=== PATIENT | female | born 1975 | race Caucasian/White ===

== ENCOUNTER 2017-05-13 23:40 | Emergency (ER) | payer MEDICAID ==
[2017-05-14 01:26] VITALS: BP 128/85
== END 2017-05-14 01:26 | disposition home or self-care (01) ==
LOC: ED 23:40
DX: T23.272A Burn of second degree of left wrist, initial encounter (principal); T31.0 Burns involving less than 10% of body surface; Z79.1 Long term (current) use of non-steroidal anti-inflammatories (NSAID); Z79.899 Other long term (current) drug therapy; W40.8XXA Explosion of other specified explosive materials, initial encounter; Y93.89 Activity, other specified; Y92.89 Other specified places as the place of occurrence of the external cause; Y99.8 Other external cause status

== ENCOUNTER 2017-08-18 10:11 | Inpatient (IN) | payer MEDICAID ==
[~2017-08-18] VITALS: Ht 165.1 cm; Wt 72.8 kg
[2017-08-18 11:43] LABS: CARBON DIOXIDE 28.1 mmol/L (21-32); CHLORIDE SERUM 104 mmol/L (98-107); CREATININE SERUM 0.9 mg/dL (0.6-1.0); GFR1 > 60 mL/min; GLUCOSE SERUM 112 mg/dL (74-106); POTASSIUM SERUM 3.5 mmol/L (3.5-5.1); SODIUM SERUM 139 mmol/L (136-145)
[2017-08-18 11:53] LABS: ALBUMIN 3.2 g/dL (3.4-5.0); ALKALINE PHOSPHATASE 180 U/L (46-116); ALT/SGPT 2343 U/L (14-59); AST/SGOT 1445 U/L (15-37); BILIRUBIN TOTAL 2.3 mg/dL (0.20-1.00); LIPASE 118 IU/L (73-393)
[2017-08-18 12:59] LABS: CHOLESTEROL/HDL RATIO 2.6; MAGNESIUM 2.1 mg/dL (1.8-2.4); PHOSPHOROUS 3.1 mg/dL (2.5-4.9)
[2017-08-18 13:05] LABS: T3 TOTAL 1.42 ng/mL
[2017-08-18 13:06] LABS: FREE T4 1.18 ng/dL (0.76-1.46); FREE THYROXINE INDEX 3.3 ug/dL (1.4-4.5); T4(THYROXINE) 13.1 ug/dL (4.7-13.3)
[2017-08-18 14:00] VITALS: BP 122/86
[2017-08-18 15:17] LABS: BILIRUBIN DIRECT 1.74 mg/dL (0.0-0.2); BILIRUBIN TOTAL 2.2 mg/dL (0.20-1.00); TOTAL PROTEIN, SERUM 6.7 g/dL (6.4-8.2)
[2017-08-18 15:18] LABS: ALBUMIN 3.2 g/dL (3.4-5.0)
[2017-08-18 16:27] LABS: microscopic required? YES; urine erythrocyte TRACE (NEGATIVE)
[2017-08-18 16:36] LABS: AMPHETAMINE QUAL UR NONE DETECTED (NEG <=1000)
[2017-08-18 18:13] VITALS: BP 122/86
[2017-08-18 19:05] LABS: BASOPHIL % 0.7 % (0-2); PLATELET COUNT 217 x10^3mcL (130-400)
[2017-08-18 19:10] LABS: RED CELL DISTRIBUTION WIDTH 14.6 % (11.5-14.5)
[2017-08-18 23:05] VITALS: BP 106/54
[2017-08-19 06:13] VITALS: BP 99/54
[2017-08-19 06:19] LABS: BASOPHIL % 1.1 % (0-2); PLATELET COUNT 203 x10^3mcL (130-400)
[2017-08-19 06:26] LABS: RED CELL DISTRIBUTION WIDTH 14.7 % (11.5-14.5)
[2017-08-19 06:28] LABS: ALKALINE PHOSPHATASE 160 U/L (46-116); BILIRUBIN TOTAL 3.07 mg/dL (0.20-1.00); CALCIUM 8.3 mg/dL (8.5-10.1); CHLORIDE SERUM 107 mmol/L (98-107); CREATININE SERUM 0.9 mg/dL (0.6-1.0); GFR1 > 60 mL/min; GLUCOSE SERUM 63 mg/dL (74-106); POTASSIUM SERUM 3.9 mmol/L (3.5-5.1); SODIUM SERUM 140 mmol/L (136-145)
[2017-08-19 06:42] LABS: ALT/SGPT 2416 U/L (14-59); AST/SGOT 1820 U/L (15-37); TOTAL PROTEIN, SERUM 6.1 g/dL (6.4-8.2)
[2017-08-19 10:00] VITALS: BP 98/57
[2017-08-19 17:26] VITALS: BP 114/53
[2017-08-19 21:02] VITALS: BP 112/67
[2017-08-20 06:15] VITALS: BP 104/58
[2017-08-20 06:20] LABS: ALKALINE PHOSPHATASE 161 U/L (46-116); BILIRUBIN TOTAL 2.1 mg/dL (0.20-1.00); CHLORIDE SERUM 108 mmol/L (98-107); CREATININE SERUM 0.8 mg/dL (0.6-1.0); GFR1 > 60 mL/min; GLUCOSE SERUM 114 mg/dL (74-106); POTASSIUM SERUM 4.1 mmol/L (3.5-5.1); SODIUM SERUM 140 mmol/L (136-145)
[2017-08-20 06:24] LABS: ALBUMIN 2.6 g/dL (3.4-5.0); ALT/SGPT 1948 U/L (14-59); AST/SGOT 1140 U/L (15-37); TOTAL PROTEIN, SERUM 5.9 g/dL (6.4-8.2)
[2017-08-20 06:34] LABS: BASOPHIL % 1.4 % (0-2); PLATELET COUNT 191 x10^3mcL (130-400); RED CELL DISTRIBUTION WIDTH 15.1 % (11.5-14.5)
[2017-08-20 09:40] VITALS: BP 120/77
[2017-08-20 14:06] VITALS: BP 109/69
[2017-08-20 16:53] VITALS: BP 145/92
[2017-08-20 21:32] VITALS: BP 113/69
[2017-08-21 05:42] VITALS: BP 99/55
[2017-08-21 06:36] LABS: PLATELET COUNT 188 x10^3mcL (130-400)
[2017-08-21 06:38] LABS: RED CELL DISTRIBUTION WIDTH 14.7 % (11.5-14.5)
[2017-08-21 06:58] LABS: CALCIUM 8.3 mg/dL (8.5-10.1); CARBON DIOXIDE 28.6 mmol/L (21-32); CHLORIDE SERUM 106 mmol/L (98-107); CREATININE SERUM 0.8 mg/dL (0.6-1.0); GFR1 > 60 mL/min; GLUCOSE SERUM 121 mg/dL (74-106); MAGNESIUM 1.6 mg/dL (1.8-2.4); PHOSPHOROUS 3.2 mg/dL (2.5-4.9); POTASSIUM SERUM 3.8 mmol/L (3.5-5.1); SODIUM SERUM 141 mmol/L (136-145)
[2017-08-21 08:01] LABS: BILIRUBIN DIRECT 2.61 mg/dL (0.0-0.2); BILIRUBIN TOTAL 3.31 mg/dL (0.20-1.00)
[2017-08-21 08:02] LABS: ALBUMIN 2.8 g/dL (3.4-5.0)
[2017-08-21 09:45] VITALS: BP 138/96
[2017-08-21 13:54] VITALS: BP 110/75
[2017-08-21 16:50] VITALS: BP 119/71
[2017-08-21 21:21] VITALS: BP 114/71
[2017-08-22] VITALS (13 sets, daily range): BP systolic 113–147; BP diastolic 64–84
[2017-08-22 06:43] LABS: PLATELET COUNT 216 x10^3mcL (130-400)
[2017-08-22 07:01] LABS: ALKALINE PHOSPHATASE 189 U/L (46-116); BILIRUBIN TOTAL 2.98 mg/dL (0.20-1.00); CALCIUM 8.9 mg/dL (8.5-10.1); CARBON DIOXIDE 27.6 mmol/L (21-32); CHLORIDE SERUM 104 mmol/L (98-107); CREATININE SERUM 0.8 mg/dL (0.6-1.0); GFR1 > 60 mL/min; GLUCOSE SERUM 157 mg/dL (74-106); MAGNESIUM 1.8 mg/dL (1.8-2.4); PHOSPHOROUS 2.3 mg/dL (2.5-4.9); POTASSIUM SERUM 3.9 mmol/L (3.5-5.1); SODIUM SERUM 139 mmol/L (136-145); TOTAL PROTEIN, SERUM 7.2 g/dL (6.4-8.2)
[2017-08-22 07:02] LABS: ALBUMIN 3.2 g/dL (3.4-5.0); ALT/SGPT 2221 U/L (14-59); AST/SGOT 1092 U/L (15-37)
[2017-08-22 07:07] LABS: BASOPHIL % 0 % (0-2); RED CELL DISTRIBUTION WIDTH 15.1 % (11.5-14.5)
[2017-08-23 05:55] VITALS: BP 129/65
[2017-08-23 06:35] LABS: ALKALINE PHOSPHATASE 168 U/L (46-116); AST/SGOT 376 U/L (15-37); BILIRUBIN TOTAL 1.5 mg/dL (0.20-1.00); CALCIUM 8.2 mg/dL (8.5-10.1); CARBON DIOXIDE 27.8 mmol/L (21-32); CHLORIDE SERUM 107 mmol/L (98-107); CREATININE SERUM 0.7 mg/dL (0.6-1.0); GFR1 > 60 mL/min; GLUCOSE SERUM 218 mg/dL (74-106); SODIUM SERUM 139 mmol/L (136-145)
[2017-08-23 06:36] LABS: ALBUMIN 2.6 g/dL (3.4-5.0); ALT/SGPT 1498 U/L (14-59)
[2017-08-23 06:59] LABS: PLATELET COUNT 210 x10^3mcL (130-400)
[2017-08-23 07:00] LABS: RED CELL DISTRIBUTION WIDTH 14.6 % (11.5-14.5)
[2017-08-23 10:30] VITALS: BP 134/71
[2017-08-23] MEDS ORDERED: TOR10 PO (11:01)
[2017-08-23] MEDS ORDERED: IBUPROFEN400 MG PO (11:26)
[2017-08-23] MEDS ORDERED: ORAPRED ODT30 MG PO ×2 (13:05)
== END 2017-08-23 16:21 | disposition home or self-care (01) ==
LOC: ED 10:11 → DU 12:08 → MU 08-22 17:04
PROVIDERS: Emergency Medicine; Internal Medicine; Internal Medicine Gastroenterology; Student in an Organized Health Care Education/Training Program; ADMIT Family Medicine Sports Medicine
PROC: 0FB13ZX Excision of Right Lobe Liver, Percutaneous Approach, Diagnostic (ICD-10-PCS; principal; 2017-08-22)
DX: K75.4 Autoimmune hepatitis (principal); E43 Unspecified severe protein-calorie malnutrition; E87.8 Other disorders of electrolyte and fluid balance, not elsewhere classified; E83.51 Hypocalcemia; D75.89 Other specified diseases of blood and blood-forming organs; R31.9 Hematuria, unspecified; K76.0 Fatty (change of) liver, not elsewhere classified; Z68.26 Body mass index [BMI] 26.0-26.9, adult
CPT/HCPCS: 78226; 84439; 90658; A9537; J0295; J1885; J2001; J2270; J2405; J2930; J3475; J7030; Q0092; Q0162

== ENCOUNTER 2017-09-03 17:46 | Emergency (ER) | payer MEDICAID ==
[~2017-09-03] VITALS: Ht 167.6 cm; Wt 73.0 kg
[~2017-09-03 17:46] MED LIST: IBUPROFEN400 MG PO; ORAPRED ODT30 MG PO; TOR10 PO
[2017-09-03 21:10] VITALS: BP 119/74
== END 2017-09-03 21:10 | disposition home or self-care (01) ==
LOC: ED 17:46
DX: B01.9 Varicella without complication (principal)
CPT/HCPCS: J1885; Q0162

== ENCOUNTER 2018-05-01 12:25 | Emergency (ER) | payer MEDICAID ==
[~2018-05-01] VITALS: Ht 179.1 cm; Wt 74.5 kg
[2018-05-01 12:31] VITALS: Ht 179.1 cm; Wt 74.5 kg
[2018-05-01 14:36] LABS: BASOPHIL % 1.2 % (0-2); PLATELET COUNT 252 x10^3mcL (130-400); RED CELL DISTRIBUTION WIDTH 13.6 % (11.5-14.5)
[2018-05-01 14:45] LABS: CALCIUM 8.6 mg/dL (8.5-10.1); CARBON DIOXIDE 24.2 mmol/L (21-32); CHLORIDE SERUM 103 mmol/L (98-107); GFR1 > 60 mL/min; GLUCOSE SERUM 118 mg/dL (74-106); POTASSIUM SERUM 3.5 mmol/L (3.5-5.1); SODIUM SERUM 136 mmol/L (136-145)
[2018-05-01 14:49] LABS: ALBUMIN 3.5 g/dL (3.4-5.0); ALKALINE PHOSPHATASE 87 U/L (46-116); ALT/SGPT 38 U/L (14-59); AST/SGOT 27 U/L (15-37); BILIRUBIN TOTAL 0.5 mg/dL (0.20-1.00); TOTAL PROTEIN, SERUM 7.5 g/dL (6.4-8.2)
[2018-05-01 15:09] LABS: UA SPECIFIC GRAVITY 1.015 (1.005-1.035); microscopic required? YES; urine erythrocyte 1+ (NEGATIVE)
[2018-05-01 16:18] VITALS: BP 93/47
== END 2018-05-01 16:25 | disposition home or self-care (01) ==
LOC: ED 12:25
PROVIDERS: Emergency Medicine
DX: N30.90 Cystitis, unspecified without hematuria (principal)
CPT/HCPCS: 80201; 83880; J1885; J7030; Q0092

== ENCOUNTER 2019-05-04 12:12 | Emergency (ER) | payer MEDICAID ==
[~2019-05-04] VITALS: Ht 162.6 cm; Wt 75.7 kg
[2019-05-04 12:16] VITALS: Ht 162.6 cm; Wt 75.7 kg
[2019-05-04 13:25] VITALS: BP 131/64
== END 2019-05-04 13:25 | disposition home or self-care (01) ==
LOC: ED 12:12
DX: J02.9 Acute pharyngitis, unspecified (principal); H66.92 Otitis media, unspecified, left ear